=== PATIENT | female | born 1980 | race Caucasian/White ===

== ENCOUNTER 2017-12-13 08:15 | Inpatient (IN) ==
[2017-12-13] MEDS ORDERED: Naloxone 0.4 MG/ML INJ IVP PRN (10:54)
[2017-12-13] MEDS ORDERED: Acetaminophen 325 MG TABLET PO PRN (10:54)
[2017-12-13] MEDS ORDERED: 0.9 % Sodium Chloride 1,000 ML IVC SCH (11:00)
[2017-12-13] MEDS ORDERED: *HR* Promethazine 25 MG/ML VIAL IVP PRN (11:19)
--- NOTE | 2017-12-13 12:00 | Internal Med History&Physical ---
Date of Encounter: 12/14/17 Time of Encounter: 11:50 Internal Medicine - H&P: HPI Chief complaint: Abdominal pain, nausea and vomiting for 3 days History of present illness: Ms. Stephens is a 37 year old female wit pmh of COPD on home oxygen, alcohol and tobacco abuse presenting with complaints of nausea, vomiting and abdominal pain of about a week's duration. Was in the hospital about 3 days ago for acute pancreatitis but signed out against medical advice because she couldn't smoke and says she wasn't getting adequate pain control. She comes back this time with worsening abdominal pain, last meal was last night and vomited this am. CT scan in ER showed evidence of pancreatitis and lipase was elevated at 242. Patient admits to alcohol abuse and has also been having tremors Past Med Surg Social Fam HX - Past Medical History Medical history: asthma, COPD, DVT, GERD, hypertension, pulmonary embolus, seizures, other Additional medical history: Chronic back pain. Broken back. Psychiatric history: no psych history, depression - Past Surgical History Surgical History: , herniorrhaphy, knee replacement Additional surgical history: Head laceration repair. Umbilical hernia repair. C /S x2. - Social History Smoking Status: Current every day smoker Smokeless Tobacco Status: No Alcohol use: occasionally Drug use: none Internal Medicine - H&P: Meds Albuterol Sulfate [Albuterol Inhaler] 8.5 gm IH Q4H PRN 11/24/16 [History] Budesonide/Formoterol 160/4.5 [Symbicort 160/4.5] 2 puff IH BIDR 11/24/16 [ History] Gabapentin [Neurontin] 800 mg PO BID 04/05/17 [History] Lisinopril-HCTZ 10-12.5 [Prinzide 10-12.5] 1 each PO DAILY 12/02/17 [History] Omeprazole [PriLOSEC] 20 mg PO DAILY 12/02/17 [History] 3 Allergy/AdvReac Type Severity Reaction Status Date / Time tramadol [From Ultram] AdvReac Seizure Verified 12/01/17 15:25 bee sting Allergy Swelling Uncoded 12/01/17 15:25 of Lip/Tongue/Throat All Systems PM: A 10-system review of systems was performed and is negative for pertinent findings except as documented above in the HPI. - Constitutional Constitutional: no chills, no fever(s), no night sweats - EENT Eyes: no change in vision, no discharge, no pain, no photophobia Ears: no ear discharge, no ear pain, no tinnitus Nose, mouth and throat: no dysphagia, no nasal discharge, no neck pain, no sore throat - Cardiovascular Cardiovascular ROS IM: no chest pain, no diaphoresis, no dyspnea, no lightheadedness, no palpitations, no syncope - Respiratory Respiratory: no cough, no dyspnea, no wheezing, no excessive phlegm production - Gastrointestinal Gastrointestinal: abdominal pain, nausea, vomiting, no diarrhea, no hematemesis , no hematochezia, no melena - Genitourinary Genitourinary: no change in urinary stream, no dysuria, no flank pain, no hematuria - Musculoskeletal Musculoskeletal ROS IM: no numbness, no tingling - Integumentary Integumentary IM: no rash, no unusual bruising - Neurological Neurological ROS: no confusion, no convulsions, no focal weakness, no numbness, no tingling, no tremor(s) - Hematologic/Lymphatic Hematologic/Lymphatic: no easy bruising - Constitutional Vitals: Temp Pulse Resp BP Pulse Ox 98.6 F 98 14 111/72 98 12/13/17 11:04 12/13/17 11:04 12/13/17 11:04 12/13/17 11:04 12/13/17 11:04 - Head Head exam: Present: atraumatic, normocephalic - Eye Eye exam: Present: PERRL, conjuntiva pink, sclera anicteric Pupils: Present: PERRL - Neck Neck exam general surgery: Present: supple, trachea midline. Absent: lymphadenopathy - Respiratory Respiratory exam: Present: CTAB. Absent: accessory muscle use, rales, rhonchi, wheezes - Cardiovascular Cardiovascular exam: Present: RRR, +S1, +S2. Absent: diastolic murmur, gallop, rubs, systolic murmur - GI/Abdominal GI/Abdominal exam: Present: normal bowel sounds, soft, tenderness, no peritoneal signs. Absent: distended Additional comments: diffuse abdominal tenderness - Extremities Exam Extremities exam: Present: warm, radial pulses palpable and symmetrical. Absent : calf tenderness, cyanotic, pedal edema - Neurological Exam Neurological exam: Present: CN II-XII intact, oriented X3, no focal deficits. Absent: pronater drift, facial droop, speech deficit - Skin Skin exam: Present: dry, intact Internal Med - H&P Results - Labs CBC & Chem 7: 12/14/17 04:41 12/14/17 04:41 - Assessment and plan (1) Pancreatitis Current Visit: No Status: Acute Assessment and plan: Acute pancreatitis. Will keep NPO, start on IV fluids, pain control and supportive management. Advance diet as tolerated Qualifiers: Chronicity: acute Pancreatitis type: alcohol induced Acute pancreatitis complication: unspecified Qualified Code(s): K85.20 - Alcohol induced acute pancreatitis without necrosis or infection (2) Alcohol withdrawal Current Visit: Yes Status: Acute Assessment and plan: Place on CIWa protocol. Ativan and Iv fluids Qualifiers: Complication of substance-induced condition: uncomplicated Qualified Code(s ): F10.230 - Alcohol dependence with withdrawal, uncomplicated (3) Abdominal pain Current Visit: No Status: Acute Assessment and plan: See #1 Qualifiers: Abdominal location: generalized Qualified Code(s): R10.84 - Generalized abdominal pain (4) COPD (chronic obstructive pulmonary disease) Current Visit: Yes Status: Acute Assessment and plan: On home oxygen. No acute exacerbation. continue nebs and supplemental oxygen Qualifiers: COPD type: unspecified COPD Qualified Code(s): J44.9 - Chronic obstructive pulmonary disease, unspecified (5) DVT prophylaxis Current Visit: Yes Status: Acute Assessment and plan: heparin sc - Time Spent With Patient Total time spent is greater than 50% in coordination of care (as documented) at patient's floor/unit and/or counseling patient:
[2017-12-13] MEDS: *HR* Morphine 2 MG/ML SYRINGE IVP PRN ×3 (12:16→20:28)
[2017-12-13] MEDS: 0.9 % Sodium Chloride 1,000 ML IVC SCH ×2 (12:20→20:28)
[2017-12-13] MEDS: Ondansetron 4 MG/2 ML VIAL IVP PRN ×2 (12:31→18:18)
[2017-12-13 13:07] LABS: BUN/Creatinine Ratio 13 (6-26); Blood Urea Nitrogen 6 mg/dL (6-20); Calcium 8.9 mg/dL (8.6-10.3); Carbon Dioxide 23 mEq/L (23-29); Chloride 104 mEq/L (98-107); Glucose 80 mg/dL (70-105); Lipase 121 Units/L (11-82); Magnesium 1.6 mg/dL (1.6-2.6); Osmolality,Calculated 283 (280-300); Phosphorous 2.7 mg/dL (2.7-4.5); Potassium 3.7 mEq/L (3.5-5.1); Sodium 138 mEq/L (136-145); eGFR For African Americans > 60 (> 60); eGFR For Non-African Americans > 60 (> 60)
[2017-12-13 13:20] LABS: Basophils # 0.1 K/mcL (0.0-0.2); Basophils % 0.9 %; Eosinophils # 0.2 K/mcL (0.0-0.6); Eosinophils % 2.2 %; Hematocrit 32.4 % (35.3-44.9); Hemoglobin 11.3 g/dL (11.5-15.4); Immature Granulocytes % 0.3 % (0-4); Lymphocytes % 14.4 %; Mean Corpuscular HGB Conc 34.9 g/dL (31.6-35.5); Mean Corpuscular Hemoglobin 34.5 pg (28.0-33.3); Mean Corpuscular Volume 98.8 fL (83.0-100.0); Mean Platelet Volume 11.1 fL (9.4-12.4); Monocytes # 0.5 K/mcL (0.0-1.3); Monocytes % 7.9 %; Neutrophils # 5.1 K/mcL (1.6-8.9); Platelet Count 103 K/mcL (140-400); Red Blood Count 3.28 M/mcL (3.82-4.97); Red Cell Distribution Width 12.5 % (11.5-14.5); Segmented Neutrophils % 74.3 %
[2017-12-13] MEDS: Thiamine (B-1) 100 MG, Folic Acid 1 MG, MVI, adult with vitamin K 10 ML in 0.9 % Sodi... IVPB SCH (18:14)
[2017-12-13] MEDS: Budesonide/Formoterol 160/4.5 MDI IH SCH (20:00)
[2017-12-13] MEDS: Gabapentin 400 MG CAPSULE PO SCH (20:28)
[2017-12-14] MEDS: *HR* Morphine 2 MG/ML SYRINGE IVP PRN ×4 (00:32→13:09)
[2017-12-14] MEDS: *HR* LORazepam 2 MG/ML VIAL IVP PRN ×2 (00:32→20:26)
[2017-12-14] MEDS: 0.9 % Sodium Chloride 1,000 ML IVC SCH ×2 (04:43→12:48)
[2017-12-14 05:24] LABS: Immature Granulocytes % 0.4 % (0-4); Mean Platelet Volume 10.9 fL (9.4-12.4)
[2017-12-14 05:26] LABS: Basophils # 0.1 K/mcL (0.0-0.2); Basophils % 0.9 %; Eosinophils # 0.2 K/mcL (0.0-0.6); Eosinophils % 3.6 %; Hematocrit 31.6 % (35.3-44.9); Hemoglobin 11.1 g/dL (11.5-15.4); Immature Platelets 8.9 % (1.1-6.1); Lymphocytes # 1.2 K/mcL (0.6-4.6); Mean Corpuscular HGB Conc 35.1 g/dL (31.6-35.5); Mean Corpuscular Hemoglobin 35.5 pg (28.0-33.3); Monocytes # 0.5 K/mcL (0.0-1.3); Monocytes % 8.7 %; Neutrophils # 3.7 K/mcL (1.6-8.9); Red Blood Count 3.13 M/mcL (3.82-4.97); Red Cell Distribution Width 12.3 % (11.5-14.5); Segmented Neutrophils % 65.4 %
[2017-12-14 05:32] LABS: Platelet Count 92 K/mcL (140-400)
[2017-12-14 05:42] LABS: BUN/Creatinine Ratio 19 (6-26); Blood Urea Nitrogen 7 mg/dL (6-20); Calcium 8.5 mg/dL (8.6-10.3); Carbon Dioxide 23 mEq/L (23-29); Chloride 101 mEq/L (98-107); Glucose 69 mg/dL (70-105); Magnesium 1.6 mg/dL (1.6-2.6); Osmolality,Calculated 276 (280-300); Phosphorous 2.8 mg/dL (2.7-4.5); Potassium 3.4 mEq/L (3.5-5.1); Sodium 135 mEq/L (136-145); eGFR For African Americans > 60 (> 60); eGFR For Non-African Americans > 60 (> 60)
[2017-12-14] MEDS ORDERED: D5% in Water 1,000 ML IVC PRN (05:54)
[2017-12-14] MEDS ORDERED: *HR* Dextrose 50 % in Water (Syg) 50 ML SYRINGE IVP PRN (05:54)
[2017-12-14] MEDS ORDERED: Dextrose Gel 15 GM/37.5 ML TUBE PO PRN ×2 (05:54)
[2017-12-14] MEDS: Ondansetron 4 MG/2 ML VIAL IVP PRN (05:58)
[2017-12-14] MEDS: Budesonide/Formoterol 160/4.5 MDI IH SCH ×2 (07:49→20:33)
[2017-12-14] MEDS: Gabapentin 400 MG CAPSULE PO SCH ×2 (09:07→20:26)
[2017-12-14] MEDS ORDERED: Nicotine 21 MG PATCH.TD24 TD SCH (12:00)
[2017-12-14] MEDS ORDERED: *HR* HYDROcodone/Acet 5/325 mg TABLET PO PRN (13:58)
[2017-12-14] MEDS ORDERED: OXYCODONE Oral CONC 10 MG/0.5 ML ORAL.SYG SL PRN (14:00)
[2017-12-14] MEDS ORDERED: Promethazine 12.5 MG in 0.9 % Sodium Chloride 50 ML IVPB PRN (14:01)
[2017-12-14] MEDS ORDERED: Potassium Chloride Elixir 20 MEQ/15 ML UDC PO ONE (14:10)
--- NOTE | 2017-12-14 15:39 | Internal Med Progress Note ---
Date of Encounter: 12/14/17 Time of Encounter: 14:00 - Assessment and plan (1) Pancreatitis Current Visit: No Status: Acute Assessment and plan: Appears to be mild pancreatitis on CT scan. Will attempt clear liquids today. Change to PO pain meds. Hopefully will improve over next 24 hours. Qualifiers: Chronicity: acute Pancreatitis type: alcohol induced Acute pancreatitis complication: no infection or necrosis Qualified Code(s): K85.20 - Alcohol induced acute pancreatitis without necrosis or infection (2) Hypokalemia Current Visit: Yes Status: Acute Assessment and plan: New today. Replace. (3) Alcohol withdrawal Current Visit: Yes Status: Chronic Assessment and plan: On CIWA but has not needed any treatment. Qualifiers: Complication of substance-induced condition: uncomplicated Qualified Code(s ): F10.230 - Alcohol dependence with withdrawal, uncomplicated (4) COPD (chronic obstructive pulmonary disease) Current Visit: Yes Status: Chronic Assessment and plan: On home oxygen. No acute exacerbation. continue nebs and supplemental oxygen Qualifiers: COPD type: unspecified COPD Qualified Code(s): J44.9 - Chronic obstructive pulmonary disease, unspecified (5) Moderate protein-calorie malnutrition Current Visit: Yes Status: Chronic (6) DVT prophylaxis Current Visit: Yes Status: Acute - Time Spent With Patient Total time spent is greater than 50% in coordination of care (as documented) at patient's floor/unit and/or counseling patient: - Subjective Interval history: Ms Stephens is currently admitted with acute pancreatitis. She remains moderate to high risk due to potential for worsening clinical status. Ms Stephens is still complaining of pain. She is getting IV potassium which is burning her arm. Not much nausea. No diarrhea. Ok to try some clear liquids and PO potassium. - Constitutional Vitals: Temp Pulse Resp BP Pulse Ox 98.4 F 67 16 115/73 99 12/14/17 15:17 12/14/17 15:17 12/14/17 15:17 12/14/17 15:17 12/14/17 15:17 General appearance: Present: A&O X 3 Exam: Moderate distress. - Head Head exam: Present: normocephalic - Eye Eye exam: Present: EOMI, conjuntiva pink - ENT ENT exam: Present: mucous membranes dry - Respiratory Respiratory exam: Present: CTAB. Absent: rales, rhonchi, wheezes - Cardiovascular Cardiovascular exam: Present: RRR. Absent: tachycardia - GI/Abdominal GI/Abdominal exam: Present: hypoactive bowel sounds, soft, tenderness, no peritoneal signs - Extremities Exam Extremities exam: Present: warm - Neurological Exam Neurological exam: Present: alert, oriented X3, no focal deficits - Skin Skin exam: Present: dry, warm Internal Medicine: Result - Labs CBC & Chem 7: 12/14/17 04:41 12/14/17 04:41 Labs: Short CBC 12/14/17 Range/Units 04:41 WBC 5.6 (4.3-11.1) K/mcL Hgb 11.1 L (11.5-15.4) g/dL Hct 31.6 L (35.3-44.9) % Plt Count 92 L (140-400) K/mcL Neutrophils # 3.7 (1.6-8.9) K/mcL BMP 12/14/17 04:41 Sodium 135 L Potassium 3.4 L Chloride 101 Carbon Dioxide 23 BUN 7 Creatinine 0.36 L Glucose 69 L Calcium 8.5 L Consult Discharge Plan - Plan Referrals: Sekou Anderson, [employer] [Primary Care Provider] - (Office request that the patient call for appt. after discharge. Thank you)
[2017-12-14] MEDS: Thiamine (B-1) 100 MG, Folic Acid 1 MG, MVI, adult with vitamin K 10 ML in 0.9 % Sodi... IVPB SCH (17:20)
[2017-12-14] MEDS ORDERED: *HR* Heparin 5,000 UNIT/ML VIAL SQ SCH (18:00)
[2017-12-14 19:37] VITALS: BP 115/81
--- NOTE | 2017-12-14 22:06 | Event Note ---
Date of Encounter: 12/14/17 Time of Encounter: 21:16 Alerted by patient's nurse GABBIE Tracey that patient was requesting to leave tonight and was requesting to see a provider. Went to see patient who is sitting on side of her bed with a man sitting in the room next to her in a chair. I proceeded as the patient what was wrong and she reported that she was feeling better, that she had not vomited or had diarrhea today, and that she did not want to stay any longer. I explained to the patient that she had electrolyte abnormalities (calcium, sodium, and potassium are all low), that she was going through alcohol withdrawal, and that she has pancreatitis. I explained to the patient the importance of these electrolytes regarding her heart rate and function and how she was at increased risk of further morbidity and possibly if she chose to leave in her current condition. I also informed the patient as I would not be discharging her in her present condition that shw would have to leave against medical advice. Patient kept looking at the person sitting in the chair while I was speaking to her. I asked the patient if she understood what I was telling her. She responded yes. I asked the patient if she understood the risks I had just discussed with her. She responded yes. I again reiterated the importance of staying in the hospital given her current condition. She stated she wished to leave. I informed her that I would not be discharging her and she stated that she would be leaving against medical advice anyway. Nurse instructed to have the patient sign the appropriate paperwork prior to leaving and have her IV access removed.
[2017-12-15] MEDS ORDERED: Tiotropium 18 MCG inhalation IH SCH (07:00)
--- NOTE | 2017-12-15 08:25 | Discharge Summary ---
- NOTES TO OUTPATIENT PROVIDER Notes to Outpatient Provider: Admitted with pancreatitis and ETOH withdrawal. Left AMA. Date of Encounter: 12/14/17 Time of Encounter: 21:57 - Discharge Diagnosis (1) Pancreatitis Priority: Primary Status: Acute Qualifiers: Chronicity: acute Pancreatitis type: alcohol induced Acute pancreatitis complication: no infection or necrosis Qualified Code(s): K85.20 - Alcohol induced acute pancreatitis without necrosis or infection (2) Hypokalemia Priority: Secondary Status: Acute (3) Alcohol withdrawal Priority: Secondary Status: Chronic Qualifiers: Complication of substance-induced condition: uncomplicated Qualified Code(s ): F10.230 - Alcohol dependence with withdrawal, uncomplicated (4) COPD (chronic obstructive pulmonary disease) Priority: Secondary Status: Chronic Qualifiers: COPD type: unspecified COPD Qualified Code(s): J44.9 - Chronic obstructive pulmonary disease, unspecified (5) Moderate protein-calorie malnutrition Priority: Secondary Status: Chronic Hospital course: Ms. Stephens is a 37 year old female with chronic ETOH use admitted with acute pancreatitis. Ms Stephens was admitted with acute pancreatitis. She was started on pain meds ( initially IV) and was NPO. On 12/14 her pain meds were changed to PO and she was given clear liquid diet. Later in the evening she left AMA. - Time Spent with Patient Total time spent providing and/or coordinating discharge services: - Discharge Medications Home Medications: Albuterol Sulfate [Albuterol Inhaler] 8.5 gm IH Q4H PRN 11/24/16 [History] Budesonide/Formoterol 160/4.5 [Symbicort 160/4.5] 2 puff IH BIDR 11/24/16 [ History] Gabapentin [Neurontin] 800 mg PO QID 04/05/17 [History] Lisinopril-HCTZ 10-12.5 [Prinzide 10-12.5] 1 each PO DAILY 12/02/17 [History] Omeprazole [PriLOSEC] 20 mg PO DAILY 12/02/17 [History] Tiotropium [place] [Spiriva Respimat] 2 puff IH DAILY 12/14/17 [History] Allergies/Adverse Reactions: 3 Allergy/AdvReac Type Severity Reaction Status Date / Time tramadol [From Ultram] AdvReac Seizure Verified 12/01/17 15:25 bee sting Allergy Swelling Uncoded 12/01/17 15:25 of Lip/Tongue/Throat Date of admission: 12/13/17 10:10 Primary care physician: Sekou Anderson CNP Consults: 12/13/17 11:20 Consult to [employer] [CONS] Routine Reason for SW Consult: alcohol abuse Discharging clinician: Davin Escamilla Anticipated date of discharge: 12/14/17 - Constitutional Vitals: Temp Pulse Resp BP Pulse Ox 99.0 F 84 14 115/81 99 12/14/17 19:36 12/14/17 19:36 12/14/17 20:35 12/14/17 19:36 12/14/17 20:35 General appearance: Present: A&O X 3 Exam: See progress note from this date. - Patient Status Disposition: Left Against Medical Advice Condition: Serious - Discharge Instructions Follow Up With: Sekou Anderson CNP [Primary Care Provider] - (Office request that the patient call for appt. after discharge. Thank you)
[2017-12-16] MEDS ORDERED: Thiamine (B-1) 100 MG TABLET PO SCH (09:00)
[2017-12-16] MEDS ORDERED: Vitamin B Complex/Vit C/Vit E 1 EACH TABLET PO SCH (09:00)
[2017-12-16] MEDS ORDERED: Folic Acid 1 MG TABLET PO SCH (09:00)
== END 2017-12-14 21:59 | disposition left against medical advice (07) | DRG 282 ==
LOC: SUATTDRO 10:10 → 3ANU 10:10
PROVIDERS: ADMIT Student in an Organized Health Care Education/Training Program; ATTEND Internal Medicine

== ENCOUNTER 2018-05-11 16:23 | Inpatient (IN) ==
[2018-05-11] MEDS ORDERED: Naloxone 0.4 MG/ML INJ IVP PRN (18:26)
--- NOTE | 2018-05-11 20:02 | Internal Med History&Physical ---
<Darek Gaona A - Last Filed: 05/11/18 21:47> Date of Encounter: 05/11/18 Time of Encounter: 20:02 Internal Medicine - H&P: HPI Chief complaint: AMS Admitted From: Home History of present illness: Ms. Stephens is a 38 year old female with past medical history of COPD, GERD, HTN, DVT, PE, and seizure disorder. She originally presented to [facility] ED for altered mental status with her boyfriend. Pt was not cooperative with providing a history of events, both at [facility] and [facility], so most history is obtained from the boyfriend. He states she does have a hx of traumatic brain injury which required multiple surgeries. States she did have a seizure approximately 1 month ago, but started having episodes of confusion, emesis, tremors, shaking her head, and waving her hands. States she has not sought medical care for any of these issues. He does state that the pt was previously on Depakote for her seizure disorder, but she does take gabapentin for chronic pain. He endorses that she drinks approximately 6-12 beers per day with the last drink at 6pm yesterday. The pt herself did admit to smoking 1ppd. The boyfriend states he called EMS after the pt had been confused for roughly 1 hour and was having tremors. Also states she was shaking her head and staring off into space. States she was then refusing to speak to him, and he was concerned for hallucinations. Past Med Surg Social Fam HX - Past Medical History Medical history: asthma, COPD, DVT, GERD, hypertension, pulmonary embolus, seizures, other Additional medical history: TBI Psychiatric history: depression - Past Surgical History Surgical History: , herniorrhaphy, knee replacement Additional surgical history: Head laceration repair. Umbilical hernia repair. C/S x2. - Social History Smoking Status: Current every day smoker Smokeless Tobacco Status: No Alcohol use: occasionally Drug use: marijuana Internal Medicine - H&P: Meds Albuterol Sulfate [Albuterol Inhaler] 8.5 gm IH Q4H PRN 11/24/16 [History] Budesonide/Formoterol 160/4.5 [Symbicort 160/4.5] 2 puff IH BIDR 11/24/16 [History] Gabapentin [Neurontin] 800 mg PO QID 04/05/17 [History] Lisinopril-HCTZ 10-12.5 [Prinzide 10-12.5] 1 each PO DAILY 12/02/17 [History] Omeprazole [PriLOSEC] 20 mg PO DAILY 12/02/17 [History] Tiotropium [place] [Spiriva Respimat] 2 puff IH DAILY 12/14/17 [History] Allergy/AdvReac Type Severity Reaction Status Date / Time tramadol [From Ultram] AdvReac Seizure Verified 04/10/18 21:37 bee sting Allergy Swelling Uncoded 04/10/18 21:37 of Lip/Tongue/Throat ROS unobtainable: due to mental status All Systems PM: A 10-system review of systems was performed and is negative for pertinent findings except as documented above in the HPI. - Constitutional General appearance: Present: mild distress, A&O X 3. Absent: cooperative Exam: General: well developed female in mild distress Head: normocephalic and atraumatic Eyes: PERRL, EOMI, sclera anicteric, conjunctiva pink Neck: supple, trachea midline Lungs: CTA bilaterally. non-labored breathing. no wheezes, rales, or rhonchi. Heart: Tachycardic +S1 +S2 no murmurs, clicks, or rubs GI: abdomen soft, non-tender, non-distended. normoactive bowel sounds Extremities: warm, peripheral pulses palpable and symmetrical. no edema, cyanosis, or calf tenderness Neuro: A&Ox3. Mostly cooperative with physical exam. Able to follow commands. Speech is normal Skin: warm, dry, intact Psych: agitated, flat affect - Assessment and plan (1) Alcohol withdrawal delirium Current Visit: Yes Status: Acute Assessment and plan: Altered mental status likely related to alcohol withdrawal in the setting of alcohol abuse vs psychosis Reported that pt drinks 6-12 beers per day with most recent drink at 18:00 on 05/10/18 Does have history of TBI which required multiple surgeries CIWA protocol Will replace B vitamins Pt does not appear to be an aspiration risk currently - regular diet with no IV fluids indicated at this time Replace electrolytes including mag and phos as needed Check LFTs - appear to be chronically elevated based on previous visits Continue to monitor closely Can consider neurology and/or psych eval when alcohol withdrawl has resolved (2) COPD (chronic obstructive pulmonary disease) Current Visit: Yes Status: Chronic Assessment and plan: not in acute exacerbation at this time Continue home meds Qualifiers: COPD type: unspecified COPD Qualified Code(s): J44.9 - Chronic obstructive pulmonary disease, unspecified (3) Tobacco abuse Current Visit: Yes Status: Chronic Assessment and plan: Smokes 1ppd Spent >10 minutes discussing the importance of cessation and treatment alternatives (4) DVT prophylaxis Current Visit: Yes Status: Acute Assessment and plan: SQ Heparin (5) Seizure disorder Current Visit: Yes Status: Chronic Assessment and plan: Known seizure disorder Reported that pt's last seizure was 1 month ago Continue home Gabapentin Seizure precautions - Time Spent With Patient Total time spent is greater than 50% in coordination of care (as documented) at patient's floor/unit and/or counseling patient: <Lyndsey Bai - Last Filed: 05/12/18 06:26> Date of Encounter: 05/11/18 Internal Medicine - H&P: HPI History of present illness: Ms. Stephens is a 38 year old female All Systems PM: A 10-system review of systems was performed and is negative for pertinent findings except as documented above in the HPI. - Constitutional Vitals: Temp Pulse Resp BP Pulse Ox 98.3 F 106 20 114/87 97 05/11/18 20:15 05/11/18 20:15 05/11/18 20:15 05/11/18 20:15 05/11/18 20:15 - Assessment and plan (1) COPD (chronic obstructive pulmonary disease) Current Visit: Yes Status: Chronic Qualifiers: COPD type: unspecified COPD Qualified Code(s): J44.9 - Chronic obstructive pulmonary disease, unspecified (2) DVT prophylaxis Current Visit: Yes Status: Acute (3) Alcohol withdrawal delirium Current Visit: Yes Status: Inactive (4) Tobacco abuse Current Visit: Yes Status: Chronic (5) Seizure disorder Current Visit: Yes Status: Chronic - Time Spent With Patient Total time spent is greater than 50% in coordination of care (as documented) at patient's floor/unit and/or counseling patient: - Attending Attestation I performed a history and physical examination of the patient and discussed her management with the resident. I reviewed the resident's note and agree with the documented findings and plan of care.
[2018-05-11] MEDS ORDERED: *HR* LORazepam 2 MG/ML VIAL IVP PRN (20:29)
[2018-05-11] MEDS ORDERED: *HR* Promethazine 25 MG/ML VIAL IVP PRN (20:29)
[2018-05-11] MEDS: Budesonide/Formoterol 160/4.5 1 PUFF INH IH SCH (21:57)
[2018-05-11 22:18] LABS: Amphetamine Screen,Urine Negative ng/mL (Cutoff=1000); Barbiturate Screen,Urine Negative ng/mL (Cutoff=200); Benzodiazepines Screen,Urine Negative ng/mL (Cutoff=200); Cannabinoid Screen,Urine Positive ng/mL (Cutoff = 50); Cocaine Screen,Urine Negative ng/mL (Cutoff= 300); Opiate Screen,Urine Negative ng/mL (Cutoff=300); Phencyclidine Screen,Urine Negative ng/mL (Cutoff=25)
[2018-05-12] MEDS: Gabapentin 400 MG CAPSULE PO SCH ×5 (00:46→19:30)
[2018-05-12] MEDS: *HR* LORazepam 2 MG/ML VIAL IVP PRN ×5 (00:47→22:05)
[2018-05-12] MEDS: *HR* Heparin 5,000 UNIT/ML VIAL SQ SCH ×2 (06:12→18:03)
[2018-05-12 06:40] LABS: Basophils # 0.1 K/mcL (0.0-0.2); Basophils % 0.9 %; Eosinophils # 0.2 K/mcL (0.0-0.6); Eosinophils % 4.3 %; Hematocrit 39.8 % (35.3-44.9); Hemoglobin 13.8 g/dL (11.5-15.4); Immature Granulocytes % 0.4 % (0-4); Lymphocytes # 1.9 K/mcL (0.6-4.6); Mean Corpuscular HGB Conc 34.7 g/dL (31.6-35.5); Mean Platelet Volume 10.3 fL (9.4-12.4); Monocytes # 0.5 K/mcL (0.0-1.3); Monocytes % 8.5 %; Neutrophils # 2.8 K/mcL (1.6-8.9); Platelet Count 161 K/mcL (140-400); Red Blood Count 3.94 M/mcL (3.82-4.97); Red Cell Distribution Width 12.7 % (11.5-14.5); Segmented Neutrophils % 50.9 %
[2018-05-12 07:11] LABS: Alanine Aminotransferase 141 Units/L (7-52); Albumin 3.5 g/dL (3.5-5.7); Albumin/Globulin Ratio 1.4 (1.1-2.2); Alkaline Phosphatase 92 Units/L (34-104); Aspartate Amino Transferase 138 Units/L (13-39); BUN/Creatinine Ratio 14 (6-26); Bilirubin,Total 0.9 mg/dL (0.3-1.0); Blood Urea Nitrogen 8 mg/dL (6-20); Calcium 8.8 mg/dL (8.6-10.3); Carbon Dioxide 22 mEq/L (23-29); Chloride 106 mEq/L (98-107); Globulin 2.5 g/dL (2.4-3.5); Glucose 80 mg/dL (70-105); Magnesium 2.2 mg/dL (1.6-2.6); Osmolality,Calculated 279 (280-300); Phosphorous 4.3 mg/dL (2.7-4.5); Potassium 3.6 mEq/L (3.5-5.1); Sodium 136 mEq/L (136-145); eGFR For Non-African Americans > 60 (> 60)
[2018-05-12] MEDS: Budesonide/Formoterol 160/4.5 1 PUFF INH IH SCH ×2 (10:39→20:47)
--- NOTE | 2018-05-12 14:11 | Internal Med Progress Note ---
Hospitalist Progress Note - Encounter Date of Encounter: 05/12/18 Time of Encounter: 14:11 - Subjective Interval History: Pt is having tangential thoughts, she is hallucinating and states people are coming in and out of the room. She is not able to carry on an appropriate conversation and not responding to questions appropriately. She states she thinks family members are trying to cut her up into pieces and tat God woke her up from the . Overall poor historian. Nurse states boyfriend informed them that she has history of TBI dut denies recent falls or injuries to her head. She denies hx of Bipolar, schizophrenia, PTSD, depression or any other history of psychiatric problems. - Exam Vitals: Temp Pulse Resp BP Pulse Ox 98.5 F 102 18 108/78 96 05/12/18 09:24 05/12/18 09:24 05/12/18 10:40 05/12/18 09:24 05/12/18 10:40 Exam: General: well developed female in no distress, alert and oriented x 3 but not responding to questions appropriately Head: normocephalic and atraumatic Eyes: PERRL, EOMI, sclera anicteric, conjunctiva pink Neck: supple, trachea midline Lungs: CTA bilaterally. non-labored breathing. no wheezes, rales, or rhonchi. Heart: Tachycardic +S1 +S2 no murmurs, clicks, or rubs GI: abdomen soft, non-tender, non-distended. normoactive bowel sounds Extremities: warm, peripheral pulses palpable and symmetrical. no edema, cyanosis, or calf tenderness Neuro: A&Ox3. Mostly cooperative with physical exam. Able to follow commands. S peech is normal Skin: warm, dry, intact Psych: agitated, flat affect and hallucinating - Assessment and Plan (1) Alcohol withdrawal delirium Current Visit: Yes Status: Inactive Assessment and Plan: Altered mental status alcohol withdrawal in the setting of alcohol abuse vs psychosis Reported that pt drinks 6-12 beers per day with most recent drink at 18:00 on 05/10/18 Does have history of TBI which required multiple surgeries. Pt not having tremors but has been hallucinating. Urine drug screen positive for THC CIWA protocol Will replace vitamins Pt does not appear to be an aspiration risk currently - regular diet with no IV fluids indicated at this time Replace electrolytes including mag and phos as needed Check LFTs - appear to be chronically elevated based on previous visits. Will check hepatitis panel as she has multiple skin tattoos and drug abuse hx unknown. Continue to monitor closely Consulting neurology and psych for eval (2) COPD (chronic obstructive pulmonary disease) Current Visit: Yes Status: Chronic Assessment and Plan: not in acute exacerbation at this time Continue home meds (3) Seizure disorder Current Visit: Yes Status: Chronic Assessment and Plan: Known seizure disorder Reported that pt's last seizure was 1 month ago According to pharmacy research, pt had been weaned off Gabapentin weeks ago and is not curently on it. Discontinue Gabapentin. Continue seizure precautions. Unclear at this time what is is currently on for seizures. Will consult Neurology to see in am for assistance with seizure management. Lorazepam prn. CT head CT/CT head/brain wo con IMPRESSION: No acute intracranial abnormality. (4) Tobacco abuse Current Visit: Yes Status: Chronic Assessment and Plan: Smokes 1ppd Spent >10 minutes discussing the importance of cessation and treatment alternatives DVT Prophylaxis: SQ Heparin - Summary of Assessment and Plan Summary of Assessment and Plan: History of present illness: Dr. Charles Ms. Stephens is a 38 year old female with past medical history of COPD, GERD, HTN, DVT, PE, and seizure disorder. She originally presented to [facility] ED for altered mental status with her boyfriend. Pt was not cooperative with providing a history of events, both at [facility] and [facility], so most history is obtained from the boyfriend. He states she does have a hx of traumatic brain injury which required multiple surgeries. States she did have a seizure approximately 1 month ago, but started having episodes of confusion, emesis, tremors, shaking her head, and waving her hands. States she has not sought medical care for any of these issues. He does state that the pt was previously on Depakote for her seizure disorder, but she does take gabapentin for chronic pain. He endorses that she drinks approximately 6-12 beers per day with the last drink at 6pm yesterday. The pt herself did admit to smoking 1ppd. The boyfriend states he called EMS after the pt had been confused for roughly 1 hour and was having tremors. Also states she was shaking her head and staring off into space. States she was then refusing to speak to him, and he was concerned for hallucinations. - Time Spent with Patient Total time spent is greater than 50% in coordination of care (as documented) at patient's floor/unit and/or counseling patient: less than 15 minutes Plan of Care Discussed with: patient Internal Medicine: Result - Labs CBC & Chem 7: 05/12/18 06:28 05/12/18 06:28 Labs: Short CBC 05/12/18 Range/Units 06:28 WBC 5.4 (4.3-11.1) K/mcL Hgb 13.8 D (11.5-15.4) g/dL Hct 39.8 (35.3-44.9) % Plt Count 161 (140-400) K/mcL Neutrophils # 2.8 (1.6-8.9) K/mcL BMP 05/12/18 06:28 Sodium 136 Potassium 3.6 Chloride 106 Carbon Dioxide 22 L BUN 8 Creatinine 0.58 L Glucose 80 Calcium 8.8 Liver Function 05/12/18 Range/Units 06:28 Total Bilirubin 0.9 (0.3-1.0) mg/dL AST 138 H (13-39) Units/L ALT 141 H (7-52) Units/L Alkaline Phosphatase 92 (34-104) Units/L Albumin 3.5 (3.5-5.7) g/dL Consult Discharge Plan - Plan Referrals: Perry Desai DO [Primary Care Provider] - (upon discharge this patient will go to [facility]) (2) COPD (chronic obstructive pulmonary disease) Qualifiers: COPD type: unspecified COPD Qualified Code(s): J44.9 - Chronic obstructive pulmonary disease, unspecified
[2018-05-12] MEDS ORDERED: Thiamine (B-1) 100 MG, Folic Acid 1 MG, MVI, adult with vitamin K 10 ML in 0.9 % Sodi... IVPB SCH (18:00)
[2018-05-12] MEDS: Nicotine 14 MG PATCH.TD24 TD SCH (18:51)
[2018-05-12 20:00] LABS: Hepatitis A Antibody IgM Nonreactive (Nonreactive); Hepatitis B Core IgM Nonreactive (Nonreactive); Hepatitis B Surface Antigen Nonreactive (Nonreactive); Hepatitis C Virus Antibody Nonreactive (Nonreactive)
[2018-05-13] MEDS: *HR* Heparin 5,000 UNIT/ML VIAL SQ SCH (06:20)
[2018-05-13] MEDS: Budesonide/Formoterol 160/4.5 1 PUFF INH IH SCH (07:41)
[2018-05-13] MEDS: Nicotine 14 MG PATCH.TD24 TD SCH (07:49)
--- NOTE | 2018-05-13 08:08 | Neurology - Consult Note ---
<Graham Baxter - Last Filed: 05/13/18 09:08> Date of Encounter: 05/13/18 Time of Encounter: 08:08 Assessment and Plan (1) Acute encephalopathy Current Visit: Yes Status: Acute Patient with history of TBI, seizure disorder who presented from [facility] ED secondary to altered mental status. Patient has tangential thoughts, hallucinations, and states people are coming in and out of her room. She is not able to carry on an appropriate conversation and does not respond to questions appropriately. CT head revealed no acute intracranial abnormality. Further recommendations to follow. (2) Alcohol withdrawal Current Visit: Yes Status: Acute Management per primary team Qualifiers: Complication of substance-induced condition: uncomplicated Qualified Code(s): F10.230 - Alcohol dependence with withdrawal, uncomplicated (3) Seizure disorder Current Visit: No Status: Chronic Family reported patient had her last seizure approximately 1 month ago during which she would sterile finger space and start shaking her head and hands. Chester arndt has been off her Depakote therapy and only takes gabapentin for chronic neuropathic pain. (4) History of traumatic brain injury Current Visit: No Status: Chronic (5) COPD (chronic obstructive pulmonary disease) Current Visit: Yes Status: Chronic Qualifiers: COPD type: unspecified COPD Qualified Code(s): J44.9 - Chronic obstructive pulmonary disease, unspecified (6) Tobacco abuse Current Visit: Yes Status: Chronic History of Present Illness Chief complaint: AMS HPI: Ms. Stephens is a 38 year old female with past medical history of TBI, seizure disorder, alcohol dependence, hypertension, COPD, and DVT/PE who presented from [facility] ED secondary to altered mental status. Family reported patient had her last seizure approximately 1 month ago during which she would sterile finger space and start shaking her head and hands. Patient has been off her Depakote therapy and only takes gabapentin for chronic neuropathic pain. Patient has tangential thoughts, hallucinations, and states people are coming in and out of her room. She is not able to carry on an appropriate conversation and does not respond to questions appropriately. Of note, patient drinks between 6 and 12 beers daily and has been on Ativan per [facility] protocol since admission. João cowan denies recent falls, history of Bipolar disorder, schizophrenia, PTSD, depression or any other history of psychiatric problems in the past. Neurology was consulted for further recommendations. Past Med Surg Social Fam HX - Past Medical History Medical history: asthma, COPD, DVT, GERD, hypertension, pulmonary embolus, seizures, other Additional medical history: TBI Psychiatric history: depression - Past Surgical History Surgical History: , herniorrhaphy, knee replacement Additional surgical history: Head laceration repair. Umbilical hernia repair. C/S x2. - Social History Smoking Status: Current every day smoker Smokeless Tobacco Status: No Alcohol use: occasionally Drug use: marijuana Medications and Allergies Albuterol Sulfate [Albuterol Inhaler] 8.5 gm IH Q4H PRN 11/24/16 [History] Budesonide/Formoterol 160/4.5 [Symbicort 160/4.5] 2 puff IH BIDR 11/24/16 [History] Allergy/AdvReac Type Severity Reaction Status Date / Time tramadol [From Ultram] AdvReac Seizure Verified 04/10/18 21:37 bee sting Allergy Swelling Uncoded 04/10/18 21:37 of Lip/Tongue/Throat All Systems: The remainder of the systems were reviewed and are negative Physical Examination - Vital Signs Vital Signs: Initial Vital Signs Temp Pulse Resp BP Pulse Ox 98.3 F 106 20 114/87 97 05/11/18 20:15 05/11/18 20:15 05/11/18 20:15 05/11/18 20:15 05/11/18 20:15 Results - Laboratory Findings CBC and BMP: 05/12/18 06:28 05/12/18 06:28 Abnormal lab findings: Abnormal lab results MCV 101.0 fL (83.0-100.0) H 05/12/18 06:28 MCH 35.0 pg (28.0-33.3) H 05/12/18 06:28 Carbon Dioxide 22 mEq/L (23-29) L 05/12/18 06:28 Creatinine 0.58 mg/dL (0.60-1.20) L 05/12/18 06:28 Calculated Osmolality 279 (280-300) L 05/12/18 06:28 AST 138 Units/L (13-39) H 05/12/18 06:28 ALT 141 Units/L (7-52) H 05/12/18 06:28 Serum Total Protein 6.0 g/dL (6.4-8.9) L 05/12/18 06:28 U Marijuana (THC) Screen Positive ng/mL (Cutoff = 50) H 05/11/18 21:45 Consult Discharge Plan - Plan Referrals: Perry Desai, [Primary Care Provider] - (upon discharge this patient will go to [facility]) <Darlyn Hart I - Last Filed: 05/13/18 14:47> Date of Encounter: 05/13/18 Assessment and Plan (1) Altered mental status Current Visit: No Status: Acute Pt was seen and examined, my medical decision was reviewed with the Resident Physician, I agree with the documented findings, disposition and treatment plas as described except to the extent set forth below. Patient seemed to be having fluctuating mental status During my evaluation she was alert awake and oriented 3, able to have a reasonable conversation Remote history of seizures while she was on tramadol around 2011, once it was discontinued she did not have any seizures. She did have a lot of back pain and is been on high doses of gabapentin for sometime and according to the patient recently she discontinued all her medication particularly gabapentin at the same time she also has a history of alcoholic abuse as well as traumatic brain injury. CT scan of the head was negative for any acute bleed or any other abnormality except mild atrophy She did have tangential thought process and hallucinations, most likely these are behavioral she certainly would need psychiatric evaluation As do not think that this is a part of neurological process We will get an EEG to exclude the possibility of any seizures, if continued to be symptomatic may need an MRI as well. Suggest to continue on thiamine check vitamin B12 folate, liver functions and ammonia and TSH and other metabolic abnormalities. At this time I would not recommend starting her on any new anticonvulsive medica tion, unless there is an abnormality on an EEG She was on high doses of gabapentin for her chronic back issues and presumed seizures it is not the first line anticonvulsant Other treatment is as per primary team Darlyn Hart MD Qualifiers: Qualified Code(s): R41.0 - Disorientation, unspecified History of Present Illness HPI: Ms. Stephens is a 38 year old female All Systems: The remainder of the systems were reviewed and are negative Physical Examination - Vital Signs Vital Signs: Initial Vital Signs Temp Pulse Resp BP Pulse Ox 98.3 F 106 20 114/87 97 05/11/18 20:15 05/11/18 20:15 05/11/18 20:15 05/11/18 20:15 05/11/18 20:15 - Exam Exam: GENERAL: Comfortable in no acute distress HEENT: Normal LUNGS: CTA HEART: RRR, S1 S2 Audible, no murmur EXTREMITIES: No Pedal edema. DETAILED NEUROLOGICAL EXAMINATION: MENTAL STATUS: Oriented to person, normal attention span able to follow simple commands, Cranial Nerve Examination: CN - II: Visual Acuity, Field of Vision Normal, Fundus examination: No disk edema, Pupils- size shape reaction to light and accommodation: All normal. CN III, IV, : External ocular movements were intact, Pupils were reactive, Nodrooping of the eyelids CN V: Sensation over the face to light touch and pinprick all normal. Corneal reflexes not tested, jaw jerk normal. CN VII: No facial asymmetry, no flattening of nasolabial folds, no difficulty in closing the eyes, no loss of forehead wrinkles, no difficulty in eye-closure, frowning raising eyebrows. CNVIII: No significant hearing loss CN IX, X: Uvula centralized not deviated, Gag reflex: Not tested CN X1: Sternocleidomastoid, trapezius, normal or evidence of any weakness. CN X11: No Dysarthria, no wasting or fibrilation f tongue muscles, no deviation, tongue muscle strength normal. Motor examination: No hypertrophy, tone was normal, power grade 0-5 Upper limbs Proximal- No difficulty in lifting the arms above the head. Distal- No weakness in distal muscles On formal testing 5/5 all over Lower limbs On formal testing 5/5 all over Coordination: [id number] normal. Target pursuit normal finger tapping normal, Rapid alternating moment of wrist normal Sensory system: Superficial sensations- Touch normal. Pain- Pinprick, Temperature all normal, Deep sensation normal, Joint position sense normal. Cortical sensation, Tactile discrimination, localization and extinction all normal. Deep tendon reflexes. Symmetrical bilateral, No evidence of Babinski. No sign of meningeal irritation Gait Examination: Deferred - Constitutional General appearance: comfortable Results - Laboratory Findings CBC and BMP: 05/12/18 06:28 05/13/18 12:09 Abnormal lab findings: Abnormal lab results MCV 101.0 fL (83.0-100.0) H 05/12/18 06:28 MCH 35.0 pg (28.0-33.3) H 05/12/18 06:28 Carbon Dioxide 22 mEq/L (23-29) L 05/12/18 06:28 Creatinine 0.58 mg/dL (0.60-1.20) L 05/12/18 06:28 Calculated Osmolality 279 (280-300) L 05/12/18 06:28 AST 138 Units/L (13-39) H 05/12/18 06:28 ALT 141 Units/L (7-52) H 05/12/18 06:28 Serum Total Protein 6.0 g/dL (6.4-8.9) L 05/12/18 06:28 U Marijuana (THC) Screen Positive ng/mL (Cutoff = 50) H 05/11/18 21:45
[2018-05-13 11:40] VITALS: BP 122/84
[2018-05-13 13:04] LABS: BUN/Creatinine Ratio 13 (6-26); Blood Urea Nitrogen 8 mg/dL (6-20); Carbon Dioxide 23 mEq/L (23-29); Chloride 109 mEq/L (98-107); Glucose 97 mg/dL (70-105); Osmolality,Calculated 282 (280-300); Phosphorous 3.6 mg/dL (2.7-4.5); Potassium 3.7 mEq/L (3.5-5.1); Sodium 137 mEq/L (136-145); eGFR For Non-African Americans > 60 (> 60)
[2018-05-13 13:05] LABS: Albumin 3.8 g/dL (3.5-5.7); Albumin/Globulin Ratio 1.5 (1.1-2.2); Bilirubin,Direct 0.1 mg/dL (0.0-0.2); Bilirubin,Indirect 0.4 mg/dL (0.0-1.2); Bilirubin,Total 0.5 mg/dL (0.3-1.0); Globulin 2.5 g/dL (2.4-3.5); Total Protein 6.3 g/dL (6.4-8.9)
--- NOTE | 2018-05-13 14:32 | Discharge Summary ---
- NOTES TO OUTPATIENT PROVIDER Notes to Outpatient Provider: THE PATIENT IS TO ESTABLISH A NEW RELATIONSHIP WITH A PCP.. Date of Encounter: 05/13/18 Time of Encounter: 14:29 - Discharge Diagnosis (1) Alcohol withdrawal seizure with delirium Priority: Primary Status: Acute (2) COPD (chronic obstructive pulmonary disease) Priority: Secondary Status: Chronic Qualifiers: COPD type: unspecified COPD Qualified Code(s): J44.9 - Chronic obstructive pulmonary disease, unspecified (3) Tobacco abuse Priority: Secondary Status: Chronic Hospital course: HOSPITAL COURSE: The patient is a 38-year-old woman. We got her from an outside facility. She evidently developed a seizure attack when getting through an alcohol withdrawal and taking marijuana. She had some delirium; subsided quickly in our facility. Urology was consulted. MRI of brain did not reveal any pathology. EEG was done it showed normal findings. We felt, that we did not have any basis to put her on anticonvulsants. I counseled psychiatric consult as her mental status returned to normal. The patient denied suicidal thinking. She did not seem to be dangerous for others. She usually drinks about 12 beers per day. Occasionally, she tries to stop drinking alcohol. The last stoppage in drinking resulted in the events described above. I advised her to cut down on her alcohol 50%. She may try to discontinue alcohol completely in a couple months. I told her not to take marijuana, when drinking alcohol. CONDITION AT DISCHARGE: She feels good. She does have normal thought process. She does have normal affect. Denies headache and dizziness/lightheadedness. She has no problems with swallowing/gait. Denies chest pain and difficulty breathing. Skin: Free of rash and discoloration. Respiratory: Normal breath sounds with no crackles and wheezes bilaterally. CV: Heart is regular with no gallop or murmur. GI: Abdomen is flat and soft with no palpable mass or visceromegaly. Neuro exam: There is no focal deficits. Normal speech, swallowing and gait. SEE DISCHARGE ORDERS/MEDICATIONS.. Discharge discussed with: patient, nurse Time spent discussing smoking cessation with patient: 3 to 10 minutes - Time Spent with Patient Total time spent providing and/or coordinating discharge services: Greater than 30 minutes (40 minutes..) - Discharge Medications Home Medications: Budesonide/Formoterol 160/4.5 [Symbicort 160/4.5] 2 puff IH BIDR 11/24/16 [History] Albuterol Sulfate [Albuterol Inhaler] 2 inh IH Q4H PRN #1 unit 05/13/18 [Rx] Allergies/Adverse Reactions: Allergy/AdvReac Type Severity Reaction Status Date / Time tramadol [From Ultram] AdvReac Seizure Verified 04/10/18 21:37 bee sting Allergy Swelling Uncoded 04/10/18 21:37 of Lip/Tongue/Throat Date of admission: 05/11/18 17:28 Primary care physician: Perry Desai Consults: 05/12/18 18:53 Consult to Neurology [CONS] Routine Consulting Provider: [facility] Reason for Consult: Seizure history Call Completed: No 05/13/18 13:01 Consult to Interpret Exam [CONS] Routine Consulting Provider: Darlyn Hart I Consult to Interpret Exam: Interpret EEG Discharging clinician: Jarad Garcia Anticipated date of discharge: 05/13/18 - Constitutional Vitals: Temp Pulse Resp BP Pulse Ox 98.2 F 108 18 122/84 98 05/13/18 11:34 05/13/18 11:34 05/13/18 11:34 05/13/18 11:34 05/13/18 11:34 General appearance: Present: A&O X 3, answers questions appropriately. Absent: cooperative Exam: xx - Patient Status Disposition: Home, Self-Care Condition: Good Functional capacity at discharge: independent ambulation (no driving before getting EEG results..) - Discharge Instructions Instructions: Chronic Obstructive Pulmonary Disease (DC) Follow Up With: NONE,PCP [Non-Partnered Physician] - (GAVE PATIENT THE 1-800 FIND CARD PER HER REQUEST) Perry Desai DO [Primary Care Provider] - (upon discharge this patient will go to [facility]) Additional Instructions: Hepatic panel -- in 3-4 weeks.. THE PT WAS ADVISED TO REDUCE DAILY ALCOHOL CONSUMPTION BY 50%.. FOLLOW-UP WITH PCP -- IN ABOUT 1 MONTH - Diet and Activity Activity: increase activity as tolerated (no driving before getting EEG results..) Diet: regular diet - VTE Reasons for not Prescribing Prophylaxis: Treatment not Indicated - Low risk for VTE Deep Vein Thrombosis/Pulmonary Embolism Present on Admission: No
--- NOTE | 2018-05-13 14:46 | EEG/EMG/Oth Biometrics Report ---
EEG Procedure Report EEG Procedure: Routine EEG Procedure Note: This is a routine 21 channel digital EEG performed utilizing 10- 20 international electrode placement system. FINDINGS: Patient has a predominant waking background frequency that is average voltage 8 to 10 Hertz alpha activity in the posterior region, normal amplitude symmetrical over the both hemispheres reactive to eyes opening and closing record continued to show alpha activity intermixed with some theta off and on, no abnormal activity recorded, predominantly no evidence of any spike wave discharges or any lateralizing abnormalities, Photic stimulation did not produce any convulsive response. Intermittent EMG artifacts were noted along with s ignificant movement artifact noted throughout the study. Stage II sleep was not achieved. Impression: Normal awake drowsy electroencephalogram. No epileptiform discharges or any other paroxysmal activities noted. ( Please note that normal EEG does not exclude the diagnosis of seizures or epilepsy, clinical correlation is suggested)
[2018-05-15] MEDS ORDERED: Thiamine (B-1) 100 MG TABLET PO SCH (09:00)
[2018-05-15] MEDS ORDERED: Vitamin B Complex/Vit C/Vit E 1 EACH TABLET PO SCH (09:00)
[2018-05-15] MEDS ORDERED: Folic Acid 1 MG TABLET PO SCH (09:00)
== END 2018-05-13 15:07 | disposition home or self-care (01) | DRG 775 ==
LOC: SUATTDRO 17:28 → 2NNU 17:28
PROVIDERS: ADMIT General Practice; ATTEND Internal Medicine

== ENCOUNTER 2022-01-31 09:25 | Inpatient (IN) ==
[2022-01-31 10:20] LABS: Hematocrit 33.9 % (35.3-44.9); Hemoglobin 10.9 g/dL (11.5-15.4); Mean Corpuscular HGB Conc 32.2 g/dL (31.6-35.5); Mean Corpuscular Hemoglobin 27.5 pg (28.0-33.3); Mean Corpuscular Volume 85.6 fL (83.0-100.0); Mean Platelet Volume 9.6 fL (9.4-12.4); Platelet Count 392 K/mcL (140-400); Red Blood Count 3.96 M/mcL (3.82-4.97); Red Cell Distribution Width 19.3 % (11.5-14.5)
[2022-01-31 10:21] LABS: White Blood Count 18.2 K/mcL (4.3-11.1)
[2022-01-31 10:45] LABS: Lymphocytes # 4.6 K/mcL (0.6-4.6); Monocytes # 0.7 K/mcL (0.0-1.3); Neutrophils # 12.9 K/mcL (1.6-8.9)
[2022-01-31 10:46] LABS: Anisocytosis 1+ (Not Present); Platelet Estimate Normal (Normal); Toxic Granulation Present (Not Present)
[2022-01-31] MEDS: Nicotine 21 MG PATCH.TD24 TD SCH (11:13)
[2022-01-31 11:52] LABS: Alanine Aminotransferase 24 Units/L (7-52); Albumin 3.4 g/dL (3.5-5.7); Albumin/Globulin Ratio 1.2 (1.1-2.2); Alkaline Phosphatase 108 Units/L (34-104); Aspartate Amino Transferase 30 Units/L (13-39); BUN/Creatinine Ratio 11 (6-26); Bilirubin,Total 0.2 mg/dL (0.3-1.0); Blood Urea Nitrogen 8 mg/dL (6-20); Calcium 8.7 mg/dL (8.6-10.3); Carbon Dioxide 28 mEq/L (23-29); Chloride 103 mEq/L (98-107); Globulin 2.8 g/dL (2.4-3.5); Glucose 102 mg/dL (70-105); Magnesium 1.7 mg/dL (1.6-2.6); Osmolality,Calculated 287 (280-300); Potassium 2.7 mEq/L (3.5-5.1); Sodium 139 mEq/L (136-145); Total Protein 6.2 g/dL (6.4-8.9)
[2022-01-31] MEDS ORDERED: Potassium Chloride Elixir 20 MEQ/15 ML UDC PO ONE (12:18)
[2022-01-31 13:02] LABS: Red Blood Cell,CSF < 2000 RBC/mcL
[2022-01-31 13:03] LABS: Appearance,CSF Clear (Clear)
[2022-01-31] MEDS ORDERED: Ketorolac 30 MG/ML VIAL IVP ONE (13:05)
[2022-01-31] MEDS ORDERED: Ondansetron 4 MG/2 ML VIAL IVP PRN (13:26)
[2022-01-31] MEDS ORDERED: Naloxone 0.4 MG/ML INJ IVP PRN (13:26)
[2022-01-31] MEDS ORDERED: *HR* Dextrose 50 % in Water (Syg) 50 ML SYRINGE IVP PRN (13:31)
[2022-01-31] MEDS ORDERED: Dextrose Gel 15 GM/37.5 ML TUBE PO PRN ×2 (13:31)
[2022-01-31] MEDS ORDERED: D5% in Water 1,000 ML IVC PRN (13:31)
[2022-01-31 13:44] LABS: Glucose,CSF 59 mg/dL (40-70); Total Protein,CSF 37 mg/dL (15-45)
[2022-01-31 15:02] LABS: Thyroid Stimulating Hormone 1.945 mcIU/mL (0.340-5.600)
[2022-01-31 16:45] LABS: Folate 2.1 ng/mL (3.0-16.0)
[2022-01-31] MEDS: *HR* Heparin 5,000 UNIT/ML VIAL SQ SCH ×2 (17:20→20:37)
[2022-01-31] MEDS: Insulin LISPRO 300 UNITS/3 ML VIAL SUBQ SCH ×2 (17:20→20:37)
[2022-01-31] MEDS: Gabapentin 300 MG CAPSULE PO SCH (20:37)
[2022-01-31] MEDS: Temazepam 15 MG CAPSULE PO SCH (20:37)
[2022-01-31] MEDS: Buprenorphine Hcl/Naloxone Hcl [Buprenorphine-Naloxone 8/2 mg] SL SCH (20:38)
[2022-02-01 03:00] LABS: Basophils # 0.1 K/mcL (0.0-0.2); Basophils % 0.4 %; Eosinophils # 0.2 K/mcL (0.0-0.6); Eosinophils % 1.2 %; Hematocrit 31.4 % (35.3-44.9); Immature Granulocytes % 0.9 % (0-4); Lymphocytes # 2.3 K/mcL (0.6-4.6); Lymphocytes % 17.5 %; Mean Corpuscular HGB Conc 31.8 g/dL (31.6-35.5); Mean Corpuscular Hemoglobin 27.2 pg (28.0-33.3); Mean Corpuscular Volume 85.6 fL (83.0-100.0); Mean Platelet Volume 10.3 fL (9.4-12.4); Monocytes # 0.7 K/mcL (0.0-1.3); Monocytes % 5.1 %; Neutrophils # 9.9 K/mcL (1.6-8.9); Platelet Count 354 K/mcL (140-400); Red Blood Count 3.67 M/mcL (3.82-4.97); Red Cell Distribution Width 19.4 % (11.5-14.5); Segmented Neutrophils % 74.9 %; White Blood Count 13.3 K/mcL (4.3-11.1)
[2022-02-01 03:48] LABS: Calcium 8.3 mg/dL (8.6-10.3); Magnesium 2.1 mg/dL (1.6-2.6); Potassium 3.6 mEq/L (3.5-5.1)
[2022-02-01] MEDS: *HR* Heparin 5,000 UNIT/ML VIAL SQ SCH ×3 (05:07→20:09)
[2022-02-01] MEDS ORDERED: *HR* HYDROcodone/Acet 5/325 mg TABLET PO PRN (07:58)
[2022-02-01] MEDS: Insulin LISPRO 300 UNITS/3 ML VIAL SUBQ SCH ×4 (08:30→20:10)
[2022-02-01] MEDS: Aspirin Enteric Coated 81 MG Tablet PO SCH (08:31)
[2022-02-01] MEDS: Gabapentin 300 MG CAPSULE PO SCH ×3 (08:31→20:10)
[2022-02-01] MEDS: FLUoxetine 20 MG CAPSULE PO SCH (08:32)
[2022-02-01] MEDS: Buprenorphine Hcl/Naloxone Hcl [Buprenorphine-Naloxone 8/2 mg] SL SCH (08:32)
[2022-02-01] MEDS: Nicotine 21 MG PATCH.TD24 TD SCH ×2 (08:32→15:07)
[2022-02-01] MEDS: Folic Acid 1 MG TABLET PO SCH (08:38)
[2022-02-01] MEDS ORDERED: Cyanocobalamin (B-12) 1,000 MCG/ML VIAL IM ONE (09:23)
[2022-02-01] MEDS ORDERED: Gadolinium Contrast Agent (WT Based) IV PRN (09:24)
[2022-02-01] MEDS ORDERED: *HR* Buprenorphine HCl 8 MG TAB.SUBL SL SCH (10:15)
[2022-02-01] MEDS: *HR* Buprenorphine HCl 8 MG TAB.SUBL SL SCH ×2 (10:51→20:10)
[2022-02-01] MEDS ORDERED: GADOBUTROL 30 MMOL/30 ML VIAL IVP ONE (18:37)
[2022-02-01] MEDS: Temazepam 15 MG CAPSULE PO SCH (20:10)
[2022-02-02 03:30] LABS: Basophils # 0.1 K/mcL (0.0-0.2); Basophils % 0.4 %; Eosinophils # 0.5 K/mcL (0.0-0.6); Eosinophils % 2.8 %; Hematocrit 30.4 % (35.3-44.9); Hemoglobin 9.8 g/dL (11.5-15.4); Immature Granulocytes % 0.8 % (0-4); Lymphocytes # 3.3 K/mcL (0.6-4.6); Lymphocytes % 20.2 %; Mean Corpuscular HGB Conc 32.2 g/dL (31.6-35.5); Mean Corpuscular Hemoglobin 27.7 pg (28.0-33.3); Mean Corpuscular Volume 85.9 fL (83.0-100.0); Mean Platelet Volume 10.2 fL (9.4-12.4); Monocytes # 0.9 K/mcL (0.0-1.3); Monocytes % 5.5 %; Neutrophils # 11.3 K/mcL (1.6-8.9); Platelet Count 355 K/mcL (140-400); Red Blood Count 3.54 M/mcL (3.82-4.97); Red Cell Distribution Width 19.3 % (11.5-14.5); Segmented Neutrophils % 70.3 %; White Blood Count 16.1 K/mcL (4.3-11.1)
[2022-02-02 03:47] LABS: BUN/Creatinine Ratio 12 (6-26); Blood Urea Nitrogen 8 mg/dL (6-20); Calcium 8.2 mg/dL (8.6-10.3); Carbon Dioxide 27 mEq/L (23-29); Chloride 100 mEq/L (98-107); Glucose 95 mg/dL (70-105); Osmolality,Calculated 276 (280-300); Potassium 3.3 mEq/L (3.5-5.1); Sodium 134 mEq/L (136-145)
[2022-02-02] MEDS: *HR* Heparin 5,000 UNIT/ML VIAL SQ SCH ×3 (05:42→21:55)
[2022-02-02] MEDS: Nicotine 21 MG PATCH.TD24 TD SCH (07:49)
[2022-02-02] MEDS: *HR* Buprenorphine HCl 8 MG TAB.SUBL SL SCH ×2 (07:50→21:55)
[2022-02-02] MEDS: FLUoxetine 20 MG CAPSULE PO SCH (07:50)
[2022-02-02] MEDS: Gabapentin 300 MG CAPSULE PO SCH ×3 (07:50→21:54)
[2022-02-02] MEDS: Aspirin Enteric Coated 81 MG Tablet PO SCH (07:51)
[2022-02-02] MEDS: Cyanocobalamin (B-12) 1,000 MCG/ML VIAL IM SCH (07:51)
[2022-02-02] MEDS: Folic Acid 1 MG TABLET PO SCH (07:52)
[2022-02-02] MEDS: Insulin LISPRO 300 UNITS/3 ML VIAL SUBQ SCH ×4 (07:52→20:51)
[2022-02-02] MEDS: Budesonide/Formoterol 160/4.5 1 PUFF INH IH SCH ×2 (10:48→22:23)
[2022-02-02] MEDS: Tiotropium 10 INH DOSE IH SCH (10:48)
[2022-02-02] MEDS: Folic Acid 1 MG in 0.9 % Sodium Chloride 50 ML IVPB SCH (10:50)
[2022-02-02 11:42] LABS: Estimated Average Glucose 146 mg/dl; Hemoglobin A1C 6.7 %
[2022-02-02 11:46] LABS: Thyroid Stimulating Hormone 3.217 mcIU/mL (0.340-5.600)
[2022-02-02] MEDS: Temazepam 15 MG CAPSULE PO SCH (21:54)
[2022-02-03] MEDS ORDERED: Acetaminophen 325 MG TABLET PO ONE (01:05)
[2022-02-03] MEDS: *HR* Heparin 5,000 UNIT/ML VIAL SQ SCH ×3 (06:19→20:05)
[2022-02-03] MEDS: Tiotropium 10 INH DOSE IH SCH (07:29)
[2022-02-03] MEDS: Budesonide/Formoterol 160/4.5 1 PUFF INH IH SCH ×2 (07:29→20:40)
[2022-02-03] MEDS: Insulin LISPRO 300 UNITS/3 ML VIAL SUBQ SCH ×4 (07:30→19:55)
[2022-02-03 08:45] LABS: Basophils # 0.1 K/mcL (0.0-0.2); Basophils % 0.5 %; Eosinophils # 0.5 K/mcL (0.0-0.6); Eosinophils % 3.1 %; Hematocrit 29.9 % (35.3-44.9); Hemoglobin 9.6 g/dL (11.5-15.4); Immature Granulocytes % 1.1 % (0-4); Lymphocytes # 2.8 K/mcL (0.6-4.6); Lymphocytes % 17.6 %; Mean Corpuscular HGB Conc 32.1 g/dL (31.6-35.5); Mean Corpuscular Hemoglobin 27.4 pg (28.0-33.3); Mean Corpuscular Volume 85.2 fL (83.0-100.0); Monocytes % 6.2 %; Neutrophils # 11.2 K/mcL (1.6-8.9); Platelet Count 356 K/mcL (140-400); Red Blood Count 3.51 M/mcL (3.82-4.97); Red Cell Distribution Width 19.5 % (11.5-14.5); Segmented Neutrophils % 71.5 %; White Blood Count 15.7 K/mcL (4.3-11.1)
[2022-02-03 09:06] LABS: BUN/Creatinine Ratio 13 (6-26); Blood Urea Nitrogen 8 mg/dL (6-20); Calcium 9.1 mg/dL (8.6-10.3); Carbon Dioxide 29 mEq/L (23-29); Chloride 99 mEq/L (98-107); Glucose 95 mg/dL (70-105); Osmolality,Calculated 278 (280-300); Sodium 135 mEq/L (136-145)
[2022-02-03] MEDS: Nicotine 21 MG PATCH.TD24 TD SCH (09:08)
[2022-02-03] MEDS: Cyanocobalamin (B-12) 1,000 MCG/ML VIAL IM SCH (09:10)
[2022-02-03] MEDS: Gabapentin 300 MG CAPSULE PO SCH ×3 (09:13→19:54)
[2022-02-03] MEDS: *HR* Buprenorphine HCl 8 MG TAB.SUBL SL SCH ×2 (09:13→19:55)
[2022-02-03] MEDS: Aspirin Enteric Coated 81 MG Tablet PO SCH (09:13)
[2022-02-03] MEDS: FLUoxetine 20 MG CAPSULE PO SCH (09:14)
[2022-02-03] MEDS: Folic Acid 1 MG in 0.9 % Sodium Chloride 50 ML IVPB SCH (10:09)
[2022-02-03] MEDS: Piperacillin/Tazobactam 3.375 GM in 0.9 % Sodium Chloride Mini Bag 100 ML IVPB SCH ×2 (11:30→19:50)
[2022-02-03] MEDS ORDERED: Piperacillin/Tazobactam 3.375 GM in 0.9 % Sodium Chloride Mini Bag 100 ML IVPB SCH (18:00)
[2022-02-03] MEDS: Temazepam 15 MG CAPSULE PO SCH (19:54)
[2022-02-04 03:22] LABS: Basophils # 0.1 K/mcL (0.0-0.2); Basophils % 0.6 %; Eosinophils # 0.6 K/mcL (0.0-0.6); Eosinophils % 4.3 %; Hematocrit 29.8 % (35.3-44.9); Hemoglobin 9.3 g/dL (11.5-15.4); Immature Granulocytes % 1.3 % (0-4); Lymphocytes # 3.2 K/mcL (0.6-4.6); Lymphocytes % 22.6 %; Mean Corpuscular HGB Conc 31.2 g/dL (31.6-35.5); Mean Corpuscular Volume 86.6 fL (83.0-100.0); Mean Platelet Volume 10.1 fL (9.4-12.4); Monocytes # 1.2 K/mcL (0.0-1.3); Monocytes % 8.4 %; Neutrophils # 8.8 K/mcL (1.6-8.9); Platelet Count 363 K/mcL (140-400); Red Blood Count 3.44 M/mcL (3.82-4.97); Red Cell Distribution Width 19.6 % (11.5-14.5); Segmented Neutrophils % 62.8 %
[2022-02-04 03:39] LABS: BUN/Creatinine Ratio 15 (6-26); Blood Urea Nitrogen 9 mg/dL (6-20); Calcium 8.5 mg/dL (8.6-10.3); Carbon Dioxide 30 mEq/L (23-29); Chloride 100 mEq/L (98-107); Glucose 98 mg/dL (70-105); Osmolality,Calculated 285 (280-300); Potassium 4.5 mEq/L (3.5-5.1); Sodium 138 mEq/L (136-145)
[2022-02-04] MEDS: Piperacillin/Tazobactam 3.375 GM in 0.9 % Sodium Chloride Mini Bag 100 ML IVPB SCH (04:04)
[2022-02-04] MEDS: *HR* Heparin 5,000 UNIT/ML VIAL SQ SCH (05:38)
[2022-02-04] MEDS: Tiotropium 10 INH DOSE IH SCH (07:36)
[2022-02-04] MEDS: Budesonide/Formoterol 160/4.5 1 PUFF INH IH SCH (07:36)
[2022-02-04 07:59] VITALS: BP 117/82; PULSE 93; TEMP 97.9; O2SAT 94
[2022-02-04] MEDS: Insulin LISPRO 300 UNITS/3 ML VIAL SUBQ SCH (08:11)
[2022-02-04] MEDS: Cyanocobalamin (B-12) 1,000 MCG/ML VIAL IM SCH (09:09)
[2022-02-04] MEDS: FLUoxetine 20 MG CAPSULE PO SCH (09:10)
[2022-02-04] MEDS: Aspirin Enteric Coated 81 MG Tablet PO SCH (09:11)
[2022-02-04] MEDS: Gabapentin 300 MG CAPSULE PO SCH (09:11)
[2022-02-04] MEDS: *HR* Buprenorphine HCl 8 MG TAB.SUBL SL SCH (09:11)
[2022-02-05 15:06] LABS: Purkinje Cell/ANNA IgG Scrn NONE DETECTED (None Detected)
== END 2022-02-04 10:39 | disposition home health service (06) | DRG 58 ==
LOC: EMEROOARM 09:25 → 3BNU 09:25 → SUATTDRO 14:16 → 3BNU 15:02
PROVIDERS: ADMIT Internal Medicine; ATTEND Family Medicine

== ENCOUNTER 2022-02-05 14:14 | Observation (INO) ==
[2022-02-05 15:54] LABS: Basophils # 0.1 K/mcL (0.0-0.2); Basophils % 0.8 %; Eosinophils # 0.5 K/mcL (0.0-0.6); Hematocrit 35.8 % (35.3-44.9); Immature Granulocytes % 1.5 % (0-4); Lymphocytes # 2.1 K/mcL (0.6-4.6); Lymphocytes % 17.5 %; Mean Corpuscular HGB Conc 32.1 g/dL (31.6-35.5); Mean Corpuscular Hemoglobin 27.6 pg (28.0-33.3); Mean Corpuscular Volume 85.9 fL (83.0-100.0); Mean Platelet Volume 9.6 fL (9.4-12.4); Monocytes # 1.1 K/mcL (0.0-1.3); Monocytes % 8.8 %; Neutrophils # 8.2 K/mcL (1.6-8.9); Platelet Count 479 K/mcL (140-400); Red Blood Count 4.17 M/mcL (3.82-4.97); Red Cell Distribution Width 19.8 % (11.5-14.5); Segmented Neutrophils % 67.4 %; White Blood Count 12.2 K/mcL (4.3-11.1)
[2022-02-05 15:55] LABS: Hemoglobin 11.5 g/dL (11.5-15.4)
[2022-02-05 16:12] LABS: BUN/Creatinine Ratio 10 (6-26); Blood Urea Nitrogen 8 mg/dL (6-20); Calcium 9.6 mg/dL (8.6-10.3); Carbon Dioxide 28 mEq/L (23-29); Chloride 96 mEq/L (98-107); Glucose 104 mg/dL (70-105); Osmolality,Calculated 277 (280-300); Potassium 4.1 mEq/L (3.5-5.1); Sodium 134 mEq/L (136-145)
[2022-02-05] MEDS ORDERED: methocarbamoL 750 MG TABLET PO ONE (16:53)
[2022-02-05] MEDS ORDERED: Ketorolac 30 MG/ML VIAL IVP ONE (16:54)
[2022-02-05 19:37] LABS: Bilirubin,Urine Negative (Negative); Blood,Urine Negative (Negative); Clarity,Urine Clear (Clear); Color,Urine Yellow (Yellow); Glucose,Urine (UA) Normal (Normal); Ketones,Urine Negative (Negative); Leukocyte Esterase,Urine Negative (Negative); Nitrite,Urine Negative (Negative); Protein,Urine Trace mg/dL (Neg-Trace); Specific Gravity,Urine 1.021 (1.010-1.025); Urobilinogen,Urine Normal (Normal)
[2022-02-05 19:54] LABS: Ethanol < 10 mg/dL (Less than 10)
[2022-02-05 20:00] LABS: Amphetamine Screen,Urine Negative ng/mL (Cutoff=1000); Barbiturate Screen,Urine Negative ng/mL (Cutoff=200); Benzodiazepines Screen,Urine Negative ng/mL (Cutoff=200); Cannabinoid Screen,Urine Negative ng/mL (Cutoff = 50); Cocaine Screen,Urine Negative ng/mL (Cutoff= 300); Phencyclidine Screen,Urine Negative ng/mL (Cutoff=25)
[2022-02-05 20:19] LABS: Opiate Screen,Urine Positive ng/mL (Cutoff=300)
[2022-02-06] MEDS ORDERED: diazePAM 5 MG TABLET PO ONE (06:33)
[2022-02-06] MEDS ORDERED: Ondansetron 4 MG/2 ML VIAL IVP PRN (08:45)
[2022-02-06] MEDS ORDERED: Acetaminophen 325 MG TABLET PO PRN (08:45)
[2022-02-06] MEDS ORDERED: Naloxone 0.4 MG/ML INJ IVP PRN (08:45)
[2022-02-06] MEDS ORDERED: Cyanocobalamin (B-12) 1,000 MCG/ML VIAL SQ ONE (08:54)
[2022-02-06] MEDS ORDERED: Folic Acid 1 MG in 0.9 % Sodium Chloride 50 ML IVPB STA (08:54)
[2022-02-06] MEDS ORDERED: Thiamine (B-1) 100 MG, Folic Acid 1 MG in 0.9 % Sodium Chloride 50 ML IVPB STA (08:58)
[2022-02-06] MEDS ORDERED: methylPREDNISolone 125 MG/2 ML VIAL IVP ONE (08:59)
[2022-02-06] MEDS: Gabapentin 300 MG CAPSULE PO SCH ×3 (09:00→21:26)
[2022-02-06] MEDS ORDERED: Dextrose Gel 15 GM/37.5 ML TUBE PO PRN ×2 (10:40)
[2022-02-06] MEDS ORDERED: D5% in Water 1,000 ML IVC PRN (10:40)
[2022-02-06] MEDS ORDERED: *HR* Dextrose 50 % in Water (Syg) 50 ML SYRINGE IVP PRN (10:40)
[2022-02-06] MEDS: Insulin LISPRO 300 UNITS/3 ML VIAL SUBQ SCH ×3 (13:34→21:26)
[2022-02-06] MEDS: NALOXONE HCL SL SCH (21:25)
[2022-02-06] MEDS: Temazepam 15 MG CAPSULE PO SCH (21:25)
[2022-02-06] MEDS: [UNRECOGNIZED DRUG - OTHER] SL SCH (21:25)
[2022-02-06] MEDS: BUPRENORPHINE HCL SL SCH (21:25)
[2022-02-07 02:36] LABS: Basophils # 0.1 K/mcL (0.0-0.2); Basophils % 0.9 %; Eosinophils # 0.4 K/mcL (0.0-0.6); Eosinophils % 3.9 %; Hematocrit 32.9 % (35.3-44.9); Hemoglobin 10.4 g/dL (11.5-15.4); Immature Granulocytes % 1.6 % (0-4); Lymphocytes % 30.8 %; Mean Corpuscular HGB Conc 31.6 g/dL (31.6-35.5); Mean Corpuscular Hemoglobin 27.1 pg (28.0-33.3); Mean Corpuscular Volume 85.7 fL (83.0-100.0); Mean Platelet Volume 9.6 fL (9.4-12.4); Monocytes # 0.8 K/mcL (0.0-1.3); Monocytes % 8.3 %; Neutrophils # 5.2 K/mcL (1.6-8.9); Platelet Count 438 K/mcL (140-400); Red Blood Count 3.84 M/mcL (3.82-4.97); Red Cell Distribution Width 19.7 % (11.5-14.5); Segmented Neutrophils % 54.5 %; White Blood Count 9.6 K/mcL (4.3-11.1)
[2022-02-07 02:51] LABS: Magnesium 2.2 mg/dL (1.6-2.6); Potassium 4.2 mEq/L (3.5-5.1)
[2022-02-07 05:30] LABS: Hepatitis B Surface Antigen Nonreactive (Nonreactive)
[2022-02-07 06:01] LABS: Hepatitis C Virus Antibody Nonreactive (Nonreactive)
[2022-02-07 06:02] LABS: Hepatitis A Antibody IgM Nonreactive (Nonreactive)
[2022-02-07] MEDS: Insulin LISPRO 300 UNITS/3 ML VIAL SUBQ SCH ×3 (07:50→17:37)
[2022-02-07] MEDS: Nicotine 14 MG PATCH.TD24 TD SCH (08:07)
[2022-02-07] MEDS: *HR* Enoxaparin 40 MG/0.4 ML SYRINGE SQ SCH (08:07)
[2022-02-07] MEDS: [UNRECOGNIZED DRUG - OTHER] SL SCH ×2 (08:08→20:10)
[2022-02-07] MEDS: BUPRENORPHINE HCL SL SCH ×2 (08:08→20:10)
[2022-02-07] MEDS: Gabapentin 300 MG CAPSULE PO SCH ×3 (08:08→20:09)
[2022-02-07] MEDS: NALOXONE HCL SL SCH ×2 (08:08→20:10)
[2022-02-07] MEDS: Folic Acid 1 MG TABLET PO SCH (08:08)
[2022-02-07] MEDS: Aspirin Enteric Coated 81 MG Tablet PO SCH (08:08)
[2022-02-07] MEDS: Cyanocobalamin (B-12) 1,000 MCG TABLET PO SCH (08:08)
[2022-02-07] MEDS ORDERED: Vitamin B Complex/Vit C/Vit E 1 EACH TABLET PO SCH (09:00)
[2022-02-07] MEDS ORDERED: Nicotine 14 MG PATCH.TD24 TD ONE (19:59)
[2022-02-07] MEDS: Temazepam 15 MG CAPSULE PO SCH (20:10)
[2022-02-08] MEDS: *HR* Enoxaparin 40 MG/0.4 ML SYRINGE SQ SCH (06:03)
[2022-02-08] MEDS: Insulin LISPRO 300 UNITS/3 ML VIAL SUBQ SCH ×5 (06:48→20:25)
[2022-02-08] MEDS: NALOXONE HCL SL SCH (07:46)
[2022-02-08] MEDS: [UNRECOGNIZED DRUG - OTHER] SL SCH (07:46)
[2022-02-08] MEDS: BUPRENORPHINE HCL SL SCH (07:46)
[2022-02-08] MEDS: Folic Acid 1 MG TABLET PO SCH (08:04)
[2022-02-08] MEDS: Aspirin Enteric Coated 81 MG Tablet PO SCH (08:05)
[2022-02-08] MEDS: Gabapentin 300 MG CAPSULE PO SCH ×3 (08:06→20:29)
[2022-02-08] MEDS: Cyanocobalamin (B-12) 1,000 MCG TABLET PO SCH (08:07)
[2022-02-08] MEDS: Nicotine 14 MG PATCH.TD24 TD SCH ×2 (08:13→14:49)
[2022-02-08] MEDS: *HR* Buprenorphine HCl 8 MG TAB.SUBL SL SCH (20:29)
[2022-02-08] MEDS: Temazepam 15 MG CAPSULE PO SCH (20:29)
[2022-02-09] MEDS: *HR* Enoxaparin 40 MG/0.4 ML SYRINGE SQ SCH (06:08)
[2022-02-09] MEDS: Insulin LISPRO 300 UNITS/3 ML VIAL SUBQ SCH ×4 (06:47→20:34)
[2022-02-09] MEDS: Folic Acid 1 MG TABLET PO SCH (08:04)
[2022-02-09] MEDS: Aspirin Enteric Coated 81 MG Tablet PO SCH (08:04)
[2022-02-09] MEDS: Cyanocobalamin (B-12) 1,000 MCG TABLET PO SCH (08:04)
[2022-02-09] MEDS: Gabapentin 300 MG CAPSULE PO SCH ×3 (08:05→20:31)
[2022-02-09] MEDS: *HR* Buprenorphine HCl 8 MG TAB.SUBL SL SCH ×2 (09:16→20:31)
[2022-02-09] MEDS: Nicotine 14 MG PATCH.TD24 TD SCH (09:17)
[2022-02-09] MEDS: Temazepam 15 MG CAPSULE PO SCH (20:31)
[2022-02-10] MEDS: *HR* Enoxaparin 40 MG/0.4 ML SYRINGE SQ SCH (05:56)
[2022-02-10] MEDS: Insulin LISPRO 300 UNITS/3 ML VIAL SUBQ SCH ×4 (08:43→20:39)
[2022-02-10] MEDS: Nicotine 14 MG PATCH.TD24 TD SCH (08:53)
[2022-02-10] MEDS: Folic Acid 1 MG TABLET PO SCH (08:53)
[2022-02-10] MEDS: Gabapentin 300 MG CAPSULE PO SCH ×3 (08:53→20:51)
[2022-02-10] MEDS: *HR* Buprenorphine HCl 8 MG TAB.SUBL SL SCH ×2 (08:54→20:51)
[2022-02-10] MEDS: Aspirin Enteric Coated 81 MG Tablet PO SCH (08:54)
[2022-02-10] MEDS: Cyanocobalamin (B-12) 1,000 MCG TABLET PO SCH (08:54)
[2022-02-10] MEDS: Temazepam 15 MG CAPSULE PO SCH (20:51)
[2022-02-11] MEDS: Insulin LISPRO 300 UNITS/3 ML VIAL SUBQ SCH ×4 (08:18→19:54)
[2022-02-11] MEDS: *HR* Enoxaparin 40 MG/0.4 ML SYRINGE SQ SCH (08:56)
[2022-02-11] MEDS: Gabapentin 300 MG CAPSULE PO SCH ×3 (08:56→21:01)
[2022-02-11] MEDS: Nicotine 14 MG PATCH.TD24 TD SCH (08:56)
[2022-02-11] MEDS: Aspirin Enteric Coated 81 MG Tablet PO SCH (08:56)
[2022-02-11] MEDS: Folic Acid 1 MG TABLET PO SCH (08:56)
[2022-02-11] MEDS: *HR* Buprenorphine HCl 8 MG TAB.SUBL SL SCH ×2 (08:56→21:00)
[2022-02-11] MEDS: Cyanocobalamin (B-12) 1,000 MCG TABLET PO SCH (08:57)
[2022-02-11] MEDS: Temazepam 15 MG CAPSULE PO SCH (21:00)
[2022-02-12] MEDS: Insulin LISPRO 300 UNITS/3 ML VIAL SUBQ SCH ×3 (07:57→17:07)
[2022-02-12] MEDS: Nicotine 14 MG PATCH.TD24 TD SCH (08:55)
[2022-02-12] MEDS: Folic Acid 1 MG TABLET PO SCH (08:55)
[2022-02-12] MEDS: *HR* Buprenorphine HCl 8 MG TAB.SUBL SL SCH ×2 (08:55→21:00)
[2022-02-12] MEDS: Aspirin Enteric Coated 81 MG Tablet PO SCH (08:55)
[2022-02-12] MEDS: Gabapentin 300 MG CAPSULE PO SCH ×3 (08:55→21:00)
[2022-02-12] MEDS: Cyanocobalamin (B-12) 1,000 MCG TABLET PO SCH (08:55)
[2022-02-12] MEDS: *HR* Enoxaparin 40 MG/0.4 ML SYRINGE SQ SCH (08:59)
[2022-02-12 10:05] LABS: SSA 52 (Anti-RO) Antibody 0 AU/mL (0-40); SSA 60 (Anti-RO) Antibody 0 AU/mL (0-40)
[2022-02-12 10:47] LABS: ANA IgG by ELISA NONE DETECTED (None Detected); DNase-B Antibody 242 U/mL (0-260)
[2022-02-12] MEDS: Temazepam 15 MG CAPSULE PO SCH (21:00)
[2022-02-13] MEDS: Insulin LISPRO 300 UNITS/3 ML VIAL SUBQ SCH ×6 (05:39→20:17)
[2022-02-13] MEDS: *HR* Enoxaparin 40 MG/0.4 ML SYRINGE SQ SCH (05:39)
[2022-02-13] MEDS: *HR* Buprenorphine HCl 8 MG TAB.SUBL SL SCH ×2 (08:46→20:17)
[2022-02-13] MEDS: Gabapentin 300 MG CAPSULE PO SCH ×3 (08:47→20:17)
[2022-02-13] MEDS: Folic Acid 1 MG TABLET PO SCH (08:48)
[2022-02-13] MEDS: Aspirin Enteric Coated 81 MG Tablet PO SCH (08:48)
[2022-02-13] MEDS: Cyanocobalamin (B-12) 1,000 MCG TABLET PO SCH (08:49)
[2022-02-13] MEDS: Nicotine 14 MG PATCH.TD24 TD SCH (09:03)
[2022-02-13] MEDS: Temazepam 15 MG CAPSULE PO SCH (20:17)
[2022-02-14] MEDS: *HR* Enoxaparin 40 MG/0.4 ML SYRINGE SQ SCH (06:07)
[2022-02-14] MEDS: Insulin LISPRO 300 UNITS/3 ML VIAL SUBQ SCH ×3 (07:17→17:14)
[2022-02-14] MEDS: *HR* Buprenorphine HCl 8 MG TAB.SUBL SL SCH (07:25)
[2022-02-14] MEDS: Gabapentin 300 MG CAPSULE PO SCH ×2 (07:25→14:19)
[2022-02-14] MEDS: Cyanocobalamin (B-12) 1,000 MCG TABLET PO SCH (07:25)
[2022-02-14] MEDS: Nicotine 14 MG PATCH.TD24 TD SCH (07:26)
[2022-02-14] MEDS: Aspirin Enteric Coated 81 MG Tablet PO SCH (07:26)
[2022-02-14] MEDS: Folic Acid 1 MG TABLET PO SCH (07:26)
[2022-02-14 14:36] VITALS: BP 109/62; PULSE 120; TEMP 98.3; O2SAT 97
[2022-02-14] MEDS ORDERED: Pfizer Covid-19 Vaccine 30MCG/0.3ML IM ONE ×2 (14:48→16:00)
[2022-02-14 15:19] LABS: ANA HEp-2 IgG IFA <1:80 (<1:80)
[2022-02-14 15:56] LABS: Influenza A PCR Negative (Negative); Influenza B PCR Negative (Negative); Resp. Syncytial Virus PCR Negative (Negative)
[2022-02-14 16:03] LABS: SARS-CoV-2 by PCR (In House) Negative (Negative)
[2022-02-15 15:06] LABS: Anti Fibrillarin U3 RNP NEGATIVE (Negative); Anti PM Scl EIA NEGATIVE (Negative); Anti RNA Polymerase III 5 Units (0-19)
== END 2022-02-14 17:13 ==
LOC: EMEROOARM 14:14 → 3BNU 14:14 → SUATTDRO 02-06 11:27 → 3BNU 02-06 13:13
PROVIDERS: ADMIT Pharmacist; ATTEND Internal Medicine